=== PATIENT | male | born 1960 | race Caucasian/White ===

== ENCOUNTER → 2025-05-08 09:07 | Outpatient (REF) | payer BC, SELFPAY | LOC: RCS 09:07 | PROVIDERS: ATTENDING PHYSICIAN Nurse Practitioner; FAMILY PHYSICIAN Internal Medicine | DX: I49.3 Ventricular premature depolarization (principal) | CPT/HCPCS: 93306 ==

== ENCOUNTER → 2025-10-23 09:02 | Outpatient (REF) | payer BC, SELFPAY | LOC: REG 09:02 | PROVIDERS: ATTENDING PHYSICIAN Internal Medicine Rheumatology | DX: M19.041 Primary osteoarthritis, right hand (principal); M79.641 Pain in right hand | CPT/HCPCS: 73120 ==